=== PATIENT | male | born 1950 | race Caucasian/White ===

== ENCOUNTER → 2023-09-02 | Outpatient (CLI) | payer MEDICARE ==
[2023-09-02 10:25] LABS: BASO # 0.1 10*3/uL (0.0-0.1); BASO % 0.9 % (0.0-1.0); EOS # 0.2 10*3/uL (0.0-0.4); EOS % 2.3 % (1.0-4.0); HEMATOCRIT 52.6 % (42.0-52.0); LYMPH # 1.6 10*3/uL (1.3-4.4); LYMPH % 24.2 % (27.0-41.0); MEAN CELL VOLUME 87.7 fl (80.0-94.0); MEAN CORPUSCULAR HGB 29.3 pg (27.0-31.0); MEAN CORPUSCULAR HGB CONC 33.5 g/dl (33.0-37.0); MEAN PLATELET VOLUME 10.9 fl (9.6-12.3); MONO # 0.6 10*3/uL (0.1-1.0); MONO % 8.9 % (3.0-9.0); NEUT # 4.2 10*3/uL (2.3-7.9); NEUT % 63.5 % (47.0-73.0); PLATELET COUNT AUTOMATED 174 10*3/uL (130-400); RED CELL DISTRI WIDTH 13.3 % (0-14.5); WHITE BLOOD COUNT 6.6 10*3/uL (4.8-10.8)
[2023-09-02 11:06] LABS: ALKALINE PHOSPHATASE 80 U/L (46-116); BUN 9 mg/dl (9-23); CHLORIDE 107 mmol/L (98-107); CHOLESTEROL 171 mg/dL (<200); LDL CHOLESTEROL 113 mg/dL (9-159); POTASSIUM 4.3 mmol/L (3.4-5.1); SGPT/ALT 15 U/L (5-49); TOTAL PROTEIN 7.4 gm/dL (6.0-8.0); TRIGLYCERIDES 98 mg/dl (<150)
== END | disposition home or self-care (01) ==
LOC: LAB 01:23
PROVIDERS: ATTEND Nurse Practitioner Family
DX: J18.9 Pneumonia, unspecified organism (principal); J02.9 Acute pharyngitis, unspecified; F17.210 Nicotine dependence, cigarettes, uncomplicated; R63.4 Abnormal weight loss

== ENCOUNTER → 2023-09-21 | Outpatient (CLI) | payer MEDICARE, OTHER | END | disposition home or self-care (01) | LOC: CT 01:06 | PROVIDERS: ATTEND Nurse Practitioner Family | DX: K76.0 Fatty (change of) liver, not elsewhere classified (principal); R73.01 Impaired fasting glucose; R63.4 Abnormal weight loss; R93.89 Abnormal findings on diagnostic imaging of other specified body structures; R29.898 Other symptoms and signs involving the musculoskeletal system; I25.10 Atherosclerotic heart disease of native coronary artery without angina pectoris; J43.9 Emphysema, unspecified; I77.810 Thoracic aortic ectasia; R91.1 Solitary pulmonary nodule; J98.4 Other disorders of lung ==

== ENCOUNTER → 2023-10-03 | Day surgery (SDC) | payer MEDICARE, OTHER ==
[~2023-10-03] VITALS: Ht 182.8 cm; Wt 79.4 kg
[~2023-10-03] MED LIST: HYDROCODONE-AC1 EAC1 PO; METFORMIN HYDR500 MG PO; PEPCID40 MG PO; VITAMIN D3125 MC1 PO
== END | disposition home or self-care (01) ==
LOC: SDC 09-29 10:15
PROVIDERS: ATTEND Surgery
DX: K21.9 Gastro-esophageal reflux disease without esophagitis (principal); Z53.8 Procedure and treatment not carried out for other reasons; I44.4 Left anterior fascicular block; R94.31 Abnormal electrocardiogram [ECG] [EKG]

== ENCOUNTER 2023-10-06 18:33 | Emergency (ER) | payer MEDICARE, OTHER ==
[~2023-10-06] VITALS: Wt 74.8 kg
[~2023-10-06 18:33] MED LIST changes: -HYDROCODONE-AC1 EAC1 PO; -VITAMIN D3125 MC1 PO
[2023-10-06 18:47] VITALS: BP 119/56
[2023-10-06 19:21] LABS: BASO % 0.4 % (0.0-1.0); EOS % 0.3 % (1.0-4.0); HEMATOCRIT 48.3 % (42.0-52.0); LYMPH # 0.7 10*3/uL (1.3-4.4); LYMPH % 8.1 % (27.0-41.0); MEAN CELL VOLUME 90.8 fl (80.0-94.0); MEAN CORPUSCULAR HGB 28.8 pg (27.0-31.0); MEAN CORPUSCULAR HGB CONC 31.7 g/dl (33.0-37.0); MEAN PLATELET VOLUME 11.4 fl (9.6-12.3); MONO # 0.6 10*3/uL (0.1-1.0); MONO % 7.1 % (3.0-9.0); NEUT # 7.5 10*3/uL (2.3-7.9); NEUT % 83.8 % (47.0-73.0); PLATELET COUNT AUTOMATED 155 10*3/uL (130-400); RED BLOOD COUNT 5.32 10*6/uL (4.50-5.90); RED CELL DISTRI WIDTH 13.7 % (0-14.5)
[2023-10-06 19:38] LABS: ALKALINE PHOSPHATASE 71 U/L (46-116); BUN 9 mg/dl (9-23); CHLORIDE 106 mmol/L (98-107); POTASSIUM 4.1 mmol/L (3.4-5.1); SGPT/ALT 30 U/L (5-49); TOTAL PROTEIN 6.6 gm/dL (6.0-8.0)
[2023-10-06] MEDS ORDERED: HYDROCODONE-AC1 EAC1 PO ×2 (22:04)
[2023-10-10] MEDS ORDERED: VITAMIN D3125 MC1 PO (12:18)
[2023-10-10] MEDS ORDERED: HYDROCODONE-AC1 EAC1 PO (12:18)
== END 2023-10-06 22:37 | disposition home or self-care (01) ==
LOC: ED 18:33
PROVIDERS: Physician Assistant Medical
DX: S42.291A Other displaced fracture of upper end of right humerus, initial encounter for closed fracture (principal); E11.9 Type 2 diabetes mellitus without complications; K21.9 Gastro-esophageal reflux disease without esophagitis; Z90.49 Acquired absence of other specified parts of digestive tract; W19.XXXA Unspecified fall, initial encounter; Y93.89 Activity, other specified; Y92.89 Other specified places as the place of occurrence of the external cause; Y99.8 Other external cause status

== ENCOUNTER → 2023-10-14 | Outpatient (CLI) | payer MEDICARE, OTHER ==
[~2023-10-14] MED LIST changes: +HYDROCODONE-AC1 EAC1 PO; +VITAMIN D3125 MC1 PO
== END | disposition home or self-care (01) ==
LOC: ORTHO 08:07
PROVIDERS: ATTEND Orthopaedic Surgery
DX: S42.221D 2-part displaced fracture of surgical neck of right humerus, subsequent encounter for fracture with routine healing (principal); X58.XXXD Exposure to other specified factors, subsequent encounter

== ENCOUNTER 2023-10-27 09:18 | Inpatient (IN) | payer MEDICARE, OTHER ==
[~2023-10-27] VITALS: Ht 182.9 cm; Wt 66.2 kg
[2023-10-27 09:37] LABS: BILIRUBIN 2+ (Negative); BLOOD Negative (Negative); CLARITY Clear (Clear); COLOR Orange (Yellow); GLUCOSE Negative (Negative); KETONE 1+ (Negative); LEUKO ESTERASE 1+ (Negative); NITRITE Positive (Negative); PH 5.5 (4.5-8.0); SPECIFIC GRAVITY >= 1.030 (1.001-1.030)
[2023-10-27 09:47] LABS: BACTERIA 4+
[2023-10-27 09:48] LABS: HYALINE CAST 0-2
[2023-10-27 10:31] LABS: BASO % 0.2 % (0.0-1.0); EOS % 0.3 % (1.0-4.0); HEMATOCRIT 43.8 % (42.0-52.0); LYMPH # 0.8 10*3/uL (1.3-4.4); LYMPH % 5.9 % (27.0-41.0); MEAN CELL VOLUME 87.6 fl (80.0-94.0); MEAN CORPUSCULAR HGB 28.6 pg (27.0-31.0); MEAN CORPUSCULAR HGB CONC 32.6 g/dl (33.0-37.0); MEAN PLATELET VOLUME 10.7 fl (9.6-12.3); MONO # 1.1 10*3/uL (0.1-1.0); MONO % 8.3 % (3.0-9.0); NEUT # 11.1 10*3/uL (2.3-7.9); NEUT % 84.5 % (47.0-73.0); PLATELET COUNT AUTOMATED 231 10*3/uL (130-400); RED CELL DISTRI WIDTH 14.2 % (0-14.5); WHITE BLOOD COUNT 13.1 10*3/uL (4.8-10.8)
[2023-10-27 10:42] LABS: ACT PARTIAL THROMBO TIME 30.3 SECONDS (20.0-32.1)
[2023-10-27 10:56] LABS: ALKALINE PHOSPHATASE 135 U/L (46-116); BUN 17 mg/dl (9-23); CHLORIDE 100 mmol/L (98-107); LIPASE 20 U/L (12-53); POTASSIUM 4.2 mmol/L (3.4-5.1); SGPT/ALT 29 U/L (5-49); TOTAL PROTEIN 6.3 gm/dL (6.0-8.0)
[2023-10-27 12:22] VITALS: BP 103/91
[2023-10-27] MEDS ORDERED: HYDROCODONE-AC1 EAC1 PO (13:55)
[2023-10-27] MEDS ORDERED: ONDANSETRON HYDR4 M1 PO (14:08)
[2023-10-27] MEDS ORDERED: MIRTAZAPINE30 M2 PO (14:09)
[2023-10-27] MEDS ORDERED: SYMB160 INH (14:10)
[2023-10-27] MEDS ORDERED: CYPROHEPTAD2 MG/5 M1 PO (14:13)
[2023-10-27] MEDS ORDERED: Ipratropium Brom3 ML INH (14:14)
[2023-10-27] MEDS ORDERED: MELATONIN5 M1 SL (14:20)
[2023-10-27 15:58] VITALS: BP 111/62
[2023-10-27 20:44] VITALS: BP 108/76
[2023-10-28 00:04] VITALS: BP 110/60
[2023-10-28 04:00] VITALS: BP 105/68
[2023-10-28 06:18] LABS: BASO % 0.3 % (0.0-1.0); EOS # 0.1 10*3/uL (0.0-0.4); EOS % 0.3 % (1.0-4.0); LYMPH # 0.9 10*3/uL (1.3-4.4); LYMPH % 5.5 % (27.0-41.0); MEAN CELL VOLUME 88.8 fl (80.0-94.0); MEAN CORPUSCULAR HGB 29.2 pg (27.0-31.0); MEAN CORPUSCULAR HGB CONC 32.8 g/dl (33.0-37.0); MEAN PLATELET VOLUME 11.1 fl (9.6-12.3); MONO # 1.3 10*3/uL (0.1-1.0); NEUT # 13.3 10*3/uL (2.3-7.9); NEUT % 85.2 % (47.0-73.0); PLATELET COUNT AUTOMATED 245 10*3/uL (130-400); RED BLOOD COUNT 5.18 10*6/uL (4.50-5.90); RED CELL DISTRI WIDTH 14.1 % (0-14.5); WHITE BLOOD COUNT 15.6 10*3/uL (4.8-10.8)
[2023-10-28 06:21] LABS: BUN 14 mg/dl (9-23); CHLORIDE 99 mmol/L (98-107); CHOLESTEROL 150 mg/dL (<200); FREE T4 1.24 ng/dl (0.89-1.76); LDL CHOLESTEROL 90 mg/dL (9-159); POTASSIUM 4.4 mmol/L (3.4-5.1); TRIGLYCERIDES 91 mg/dl (<150)
[2023-10-28 08:57] VITALS: BP 107/63
[2023-10-28 15:16] VITALS: BP 117/66
[2023-10-28 16:00] VITALS: BP 103/68
[2023-10-28 19:43] VITALS: BP 97/63
[2023-10-29] VITALS: BP 102/58
[2023-10-29 06:10] LABS: BASO % 0.2 % (0.0-1.0); EOS # 0.1 10*3/uL (0.0-0.4); EOS % 0.5 % (1.0-4.0); HEMATOCRIT 43.9 % (42.0-52.0); LYMPH # 0.9 10*3/uL (1.3-4.4); LYMPH % 5.5 % (27.0-41.0); MEAN CELL VOLUME 90.1 fl (80.0-94.0); MEAN CORPUSCULAR HGB CONC 32.1 g/dl (33.0-37.0); MEAN PLATELET VOLUME 11.1 fl (9.6-12.3); MONO # 1.5 10*3/uL (0.1-1.0); MONO % 8.7 % (3.0-9.0); NEUT # 14.2 10*3/uL (2.3-7.9); NEUT % 84.5 % (47.0-73.0); PLATELET COUNT AUTOMATED 235 10*3/uL (130-400); RED BLOOD COUNT 4.87 10*6/uL (4.50-5.90); RED CELL DISTRI WIDTH 14.3 % (0-14.5); WHITE BLOOD COUNT 16.8 10*3/uL (4.8-10.8)
[2023-10-29 06:27] LABS: ALKALINE PHOSPHATASE 144 U/L (46-116); BUN 17 mg/dl (9-23); CHLORIDE 101 mmol/L (98-107); POTASSIUM 4.1 mmol/L (3.4-5.1); SGPT/ALT 17 U/L (5-49); TOTAL PROTEIN 6.1 gm/dL (6.0-8.0)
[2023-10-29 08:00] VITALS: BP 106/64
[2023-10-29 12:00] VITALS: BP 108/67; BP 128/72
[2023-10-29 16:00] VITALS: BP 97/62
[2023-10-29 20:00] VITALS: BP 105/66
[2023-10-30] VITALS: BP 98/54
[2023-10-30 08:00] VITALS: BP 116/50
[2023-10-30 08:19] LABS: BASO # 0.1 10*3/uL (0.0-0.1); BASO % 0.3 % (0.0-1.0); EOS # 0.1 10*3/uL (0.0-0.4); EOS % 0.3 % (1.0-4.0); HEMATOCRIT 43.8 % (42.0-52.0); LYMPH # 0.7 10*3/uL (1.3-4.4); LYMPH % 4.3 % (27.0-41.0); MEAN CELL VOLUME 90.5 fl (80.0-94.0); MEAN CORPUSCULAR HGB 29.1 pg (27.0-31.0); MEAN CORPUSCULAR HGB CONC 32.2 g/dl (33.0-37.0); MONO # 1.4 10*3/uL (0.1-1.0); MONO % 8.2 % (3.0-9.0); NEUT # 14.2 10*3/uL (2.3-7.9); NEUT % 86.2 % (47.0-73.0); PLATELET COUNT AUTOMATED 240 10*3/uL (130-400); RED BLOOD COUNT 4.84 10*6/uL (4.50-5.90); RED CELL DISTRI WIDTH 14.1 % (0-14.5); WHITE BLOOD COUNT 16.5 10*3/uL (4.8-10.8)
[2023-10-30 08:39] LABS: BUN 17 mg/dl (9-23); CHLORIDE 103 mmol/L (98-107); POTASSIUM 3.7 mmol/L (3.4-5.1)
[2023-10-30 12:00] VITALS: BP 104/52
[2023-10-30 16:00] VITALS: BP 105/55
[2023-10-30 20:00] VITALS: BP 95/53
[2023-10-31] VITALS: BP 129/55
[2023-10-31 06:47] LABS: BASO % 0.3 % (0.0-1.0); EOS # 0.1 10*3/uL (0.0-0.4); EOS % 0.4 % (1.0-4.0); HEMATOCRIT 41.8 % (42.0-52.0); LYMPH # 0.7 10*3/uL (1.3-4.4); LYMPH % 4.5 % (27.0-41.0); MEAN CELL VOLUME 88.4 fl (80.0-94.0); MEAN CORPUSCULAR HGB 28.8 pg (27.0-31.0); MEAN CORPUSCULAR HGB CONC 32.5 g/dl (33.0-37.0); MEAN PLATELET VOLUME 10.7 fl (9.6-12.3); MONO # 1.1 10*3/uL (0.1-1.0); MONO % 7.3 % (3.0-9.0); NEUT % 86.7 % (47.0-73.0); PLATELET COUNT AUTOMATED 231 10*3/uL (130-400); RED BLOOD COUNT 4.73 10*6/uL (4.50-5.90); RED CELL DISTRI WIDTH 14.1 % (0-14.5)
[2023-10-31 06:57] LABS: BUN 13 mg/dl (9-23); CHLORIDE 104 mmol/L (98-107); POTASSIUM 3.8 mmol/L (3.4-5.1)
[2023-10-31 08:00] VITALS: BP 99/55
[2023-10-31 12:00] VITALS: BP 102/62
[2023-10-31 16:00] VITALS: BP 104/61
[2023-10-31 20:00] VITALS: BP 117/63
[2023-11-01] VITALS: BP 115/65
[2023-11-01 08:00] VITALS: BP 115/63
[2023-11-01 12:00] VITALS: BP 112/62
[2023-11-01 16:00] VITALS: BP 110/62
[2023-11-01 19:17] LABS: BASO % 0.2 % (0.0-1.0); EOS % 0.3 % (1.0-4.0); HEMATOCRIT 41.6 % (42.0-52.0); LYMPH # 0.8 10*3/uL (1.3-4.4); LYMPH % 5.5 % (27.0-41.0); MEAN CELL VOLUME 89.8 fl (80.0-94.0); MEAN CORPUSCULAR HGB 28.7 pg (27.0-31.0); MEAN PLATELET VOLUME 10.3 fl (9.6-12.3); MONO # 0.9 10*3/uL (0.1-1.0); MONO % 6.4 % (3.0-9.0); NEUT # 12.2 10*3/uL (2.3-7.9); NEUT % 86.7 % (47.0-73.0); PLATELET COUNT AUTOMATED 238 10*3/uL (130-400); RED BLOOD COUNT 4.63 10*6/uL (4.50-5.90); RED CELL DISTRI WIDTH 14.5 % (0-14.5); WHITE BLOOD COUNT 14.1 10*3/uL (4.8-10.8)
[2023-11-01 20:00] VITALS: BP 116/68
[2023-11-01 20:18] LABS: BILIRUBIN 2+ (Negative); BLOOD Negative (Negative); CLARITY Turbid (Clear); COLOR Dark Yellow (Yellow); GLUCOSE Negative (Negative); KETONE 1+ (Negative); LEUKO ESTERASE Negative (Negative); NITRITE Negative (Negative); PH 5.5 (4.5-8.0); SPECIFIC GRAVITY >= 1.030 (1.001-1.030)
[2023-11-01 20:27] LABS: BACTERIA 2+; MUCOUS 1+; RBC 31-40 rbc/hpf (0-2)
[2023-11-02] VITALS: BP 104/53
[2023-11-02 08:00] VITALS: BP 117/56
[2023-11-02] MEDS ORDERED: AMOX-CLAV 875-1 EACH PO (10:31)
== END 2023-11-02 13:15 | DRG 871 ==
LOC: ED 09:18 → 5E 11:58 → EDHOLD 11:58 → 5E 10-28 14:32
PROVIDERS: Emergency Medicine; Family Medicine; Registered Nurse; Student in an Organized Health Care Education/Training Program; ADMIT Internal Medicine; ATTEND Internal Medicine
DX: A41.9 Sepsis, unspecified organism (principal); E43 Unspecified severe protein-calorie malnutrition; N30.00 Acute cystitis without hematuria; Z16.12 Extended spectrum beta lactamase (ESBL) resistance; Z68.1 Body mass index [BMI] 19.9 or less, adult; R65.20 Severe sepsis without septic shock; L89.90 Pressure ulcer of unspecified site, unspecified stage; Z66 Do not resuscitate; R33.9 Retention of urine, unspecified; R54 Age-related physical debility; E11.65 Type 2 diabetes mellitus with hyperglycemia; E80.6 Other disorders of bilirubin metabolism; L89.150 Pressure ulcer of sacral region, unstageable; B96.3 Hemophilus influenzae [H. influenzae] as the cause of diseases classified elsewhere; B95.2 Enterococcus as the cause of diseases classified elsewhere; B96.1 Klebsiella pneumoniae [K. pneumoniae] as the cause of diseases classified elsewhere; Z79.1 Long term (current) use of non-steroidal anti-inflammatories (NSAID); K21.9 Gastro-esophageal reflux disease without esophagitis; Z51.5 Encounter for palliative care; Z79.899 Other long term (current) drug therapy; Z79.84 Long term (current) use of oral hypoglycemic drugs